=== PATIENT | female | born 1935 | race Native Hawaiian/Other Pacific Islander ===

== ENCOUNTER 2017-04-08 12:21 | Outpatient (CLI) | payer OTHER, MEDICARE | END 2017-04-08 19:24 | disposition home or self-care (01) | LOC: RAD 12:21 | DX: M25.562 Pain in left knee (principal) ==

== ENCOUNTER 2017-04-15 13:27 | Outpatient (CLI) | payer OTHER, MEDICARE | END 2017-04-15 14:30 | disposition home or self-care (01) | LOC: US 13:27 | DX: R60.0 Localized edema (principal) ==

== ENCOUNTER 2017-04-19 14:08 | Outpatient (CLI) | payer OTHER, MEDICARE | END 2017-04-19 15:10 | disposition home or self-care (01) | LOC: RAD 14:08 | DX: M79.652 Pain in left thigh (principal) ==

== ENCOUNTER 2018-07-28 12:02 | Outpatient (CLI) | payer OTHER, MEDICARE | END 2018-07-28 22:32 | disposition home or self-care (01) | LOC: RAD 12:02 | DX: M25.572 Pain in left ankle and joints of left foot (principal) ==